=== PATIENT | male | born 1960 | race Caucasian/White ===

== ENCOUNTER 2019-06-10 09:19 | Emergency (ER) | payer MEDICARE ==
[~2019-06-10] VITALS: Ht 170.2 cm; Wt 66.0 kg
[2019-06-10 10:19] VITALS: BP 148/94
== END 2019-06-10 10:21 | disposition home or self-care (01) ==
LOC: ER 09:41
DX: K06.9 Disorder of gingiva and edentulous alveolar ridge, unspecified (principal)
CPT/HCPCS: 99283

== ENCOUNTER 2019-07-29 19:04 | Emergency (ER) | payer MEDICAID, MEDICARE ==
[~2019-07-29] VITALS: Ht 162.6 cm; Wt 61.0 kg
[2019-07-29 20:56] VITALS: BP 132/103
== END 2019-07-29 20:58 | disposition home or self-care (01) ==
LOC: ER 19:04
DX: K05.10 Chronic gingivitis, plaque induced (principal); G62.9 Polyneuropathy, unspecified; Z90.49 Acquired absence of other specified parts of digestive tract; Z96.659 Presence of unspecified artificial knee joint
CPT/HCPCS: 99281

== ENCOUNTER 2019-10-24 17:20 | Emergency (ER) | payer MEDICAID ==
[~2019-10-24] VITALS: Ht 160 cm; Wt 76.0 kg
[2019-10-24 17:21] VITALS: BP 121/79
== END 2019-10-24 19:03 | disposition left against medical advice (07) ==
LOC: ER 17:20
DX: M25.561 Pain in right knee (principal); Z90.49 Acquired absence of other specified parts of digestive tract
CPT/HCPCS: 29505; 99283

== ENCOUNTER 2021-02-28 15:41 | Emergency (ER) | payer MEDICAID ==
[~2021-02-28] VITALS: Ht 170.2 cm; Wt 77.0 kg
[2021-02-28 17:29] VITALS: BP 138/82
[2021-02-28] MEDS ORDERED: ACETAMINOPHEN 325MG TABLET PO ONE (17:30)
[2021-02-28] MEDS ORDERED: METHOCARBAMOL 500MG TABLET PO ONE (17:30)
[2021-02-28] MEDS ORDERED: KETOROLAC 60MG/2ML VIAL IM ONE (17:30)
[2021-02-28] MEDS ORDERED: IBUP-2028 MT (17:50)
[2021-02-28] MEDS ORDERED: METH-653 MT (17:50)
[2021-02-28] MEDS ORDERED: LIDO1ADH23 TP (17:51)
[2021-03-01] MEDS ORDERED: LIDOCAINE 5% PATCH TOP SCH (09:00)
== END 2021-02-28 18:07 | disposition home or self-care (01) ==
LOC: ER 15:41
DX: M54.2 Cervicalgia (principal); M62.838 Other muscle spasm
CPT/HCPCS: 96372; 99283; J1885